=== PATIENT | male | born 1955 | race Caucasian/White ===

== ENCOUNTER → 2018-12-01 | Outpatient (CLI) | payer MEDICARE ==
[~2018-12-01] MED LIST: REGADENOSON 0.4 MG/5 ML SYR IV ONE
--- NOTE | 2018-12-07 17:02 | Myoview Stress Test ---
DATE OF STUDY: 12/01/2018 09:23:00 Stress Test - Treadmill ONLY PROCEDURE TITLE: Rest/stress single isotope SPECT imaging with pharmacologic stress and gated SPECT imaging. INDICATION: Chest pain. PROCEDURE IN DETAIL: Pharmacologic stress testing was performed with regadenoson per protocol. The heart rate was 66 beats per minute at rest and increased to 105 beats per minute during the regadenoson infusion. The rest blood pressure was 114/73 mmHg, increased to 143/66 mmHg, which is a normal response. The resting electrocardiogram demonstrated normal sinus rhythm. There were no ST-segment changes suggestive of myocardial ischemia. Myocardial perfusion imaging was performed at rest following the injection of 10.7 mCi of tetrofosmin. At peak pharmacologic effect, the patient was injected with 32 mCi of tetrofosmin. Gated post-stress tomographic imaging was performed. FINDINGS: The overall quality of study is fair. Left ventricular cavity is noted to be normal size on the rest and stress studies. SPECT images demonstrate homogeneous tracer distribution throughout the myocardium. Gated SPECT imaging reveals normal myocardial thickening and wall motion. Left ventricular ejection fraction was calculated to be greater than 70%. IMPRESSION: Myocardial perfusion imaging is normal. Overall, left ventricular systolic function was normal without regional wall motion abnormalities. Marcia Tafoya MD ABS/MODL /[id number]
== END ==
LOC: NM 09:13
PROVIDERS: ATTEND Internal Medicine Cardiovascular Disease
DX: R07.9 Chest pain, unspecified (principal); I50.9 Heart failure, unspecified
CPT/HCPCS: 78452; 93017; A9502; J2785

== ENCOUNTER 2021-01-01 14:08 | Inpatient (IN) | payer MEDICARE ==
[~2021-01-01] VITALS: Ht 167.6 cm; Wt 52.6 kg
[2021-01-01] MEDS ORDERED: ONDANSETRON HCL INJ 2MG/ML 2ML 2 MG/ML VIAL IV STA (14:25)
[2021-01-01] MEDS ORDERED: METHYLPREDNISOLONE SOD SUCC 125 MG/2ML VIAL IV STA (14:29)
[2021-01-01] MEDS ORDERED: ALBUTEROL/IPRATROPIUM 3 ML NEB NEB ONE (14:30)
[2021-01-01] MEDS ORDERED: SODIUM CHLORIDE 0.9% 500ML 500 ML IV ONE (14:30)
[2021-01-01 14:55] LABS: BASOPHILS % 0.3 % (0.0-1.0); HEMATOCRIT 31.1 % (38.2-49.6); HEMOGLOBIN 9.9 g/dL (14.0-18.0); LYMPHOCYTES # (AUTO) 0.5 (1.0-3.2); LYMPHOCYTES % 15.6 % (18.0-39.1); MEAN CORPUSCULAR HGB CONC 31.8 g/dL (31-35); MEAN CORPUSCULAR VOLUME 100.6 fL (81-99); MONOCYTES # (AUTO) 0.5 (0.2-0.8); MONOCYTES % 14.1 % (4.4-11.3); NEUTROPHILS # (AUTO) 2.2 (2.1-6.9); NEUTROPHILS % 69.7 % (38.7-80.0); RED BLOOD COUNT 3.09 x10e6/uL (4.3-5.7); RED CELL DISTRIBUTION WIDTH 11.9 % (11.7-14.4)
[2021-01-01 14:58] LABS: PLATELET COUNT 91 x10e3/uL (140-360)
[2021-01-01 15:01] LABS: INR 0.89; PROTHROMBIN TIME 12.2 seconds (11.9-14.5)
[2021-01-01 15:02] LABS: PARTIAL THROMBOPLASTIN TIME 33.9 seconds (23.8-35.5)
[2021-01-01 15:12] LABS: ALBUMIN 3.4 g/dL (3.5-5.0); ALBUMIN/GLOBULIN RATIO 1.1 (0.8-2.0); ANION GAP 12.8 mmol/L (8-16); CALCIUM 8.5 mg/dL (8.4-10.2); CREATININE, SERUM 0.86 mg/dL (0.72-1.25); MAGNESIUM 1.7 MG/DL (1.3-2.1); POTASSIUM 3.8 mmol/L (3.5-5.1)
[2021-01-01 15:17] LABS: CREATINE KINASE MB 1.1 ng/mL (0-5.0)
[2021-01-01] MEDS ORDERED: ONDANSETRON HCL INJ 2MG/ML 2ML 2 MG/ML VIAL IV PRN (15:30)
[2021-01-01] MEDS ORDERED: MORPHINE SULFATE INJ 2 MG/ML SYR IV PRN (15:30)
[2021-01-01] MEDS ORDERED: CEFTRIAXONE 1 GM in SODIUM CHLORIDE 0.9% 50ML 50 ML IV SCH (16:00)
[2021-01-01 16:05] LABS: ABG HCO3 47 mmol/L (22-26); ABG PCO2 96 mmHg (35-45); ABG PO2 304 mmHg (80-105); ABG TCO2 50
[2021-01-01] MEDS ORDERED: ALBUTEROL SULFATE HFA 8GM INHALATION AEROSOL INH PRN (16:30)
[2021-01-01] MEDS ORDERED: REMDESIVIR 200MG 200 MG in SODIUM CHLORIDE 0.9% 100 ML IV ONE (17:30)
[2021-01-01] MEDS: ASCORBIC ACID 500 MG TAB PO SCH (17:42)
[2021-01-01] MEDS: ENOXAPARIN 30 MG/0.3 ML SYR SC SCH (17:42)
[2021-01-01] MEDS ORDERED: DEXAMETHASONE SOD PHOS 10 MG/1 ML VIAL IV SCH (18:00)
[2021-01-01] MEDS ORDERED: SODIUM CHLORIDE 0.9% 50ML 50 ML ONE (19:18)
[2021-01-01] MEDS ORDERED: IOPAMIDOL 370 MG/ML 200 ML INFUS..BTL INJ ONE (19:18)
[2021-01-01] MEDS ORDERED: PROMETHAZINE 25MG/ NS 50ML (IV) IV PRN (19:30)
[2021-01-01] MEDS ORDERED: REMDESIVIR 200MG 200 MG IV SCH (19:45)
[2021-01-01] MEDS: ACETAMINOPHEN 325 MG TAB PO PRN (19:45)
[2021-01-01] MEDS ORDERED: ACETAMINOPHEN 325 MG TAB ONE (19:47)
[2021-01-01] MEDS ORDERED: PROMETHAZINE 12.5MG/ NACL 0.9% 50 ML ONE (19:47)
[2021-01-01] MEDS ORDERED: SODIUM CHLORIDE 0.9% 250ML 0 ML ONE (19:51)
[2021-01-01] MEDS ORDERED: ASCORBIC ACID 500 MG TAB PO SCH (20:00)
[2021-01-01 23:32] LABS: CREATINE KINASE MB 1.2 ng/mL (0-5.0)
[2021-01-02] VITALS (8 sets, daily range): BP systolic 123–154; BP diastolic 71–81
[2021-01-02 05:51] LABS: HEMATOCRIT 32.9 % (38.2-49.6); HEMOGLOBIN 10.4 g/dL (14.0-18.0); LYMPHOCYTES # (AUTO) 0.4 (1.0-3.2); MEAN CORPUSCULAR HEMOGLOBIN 31.8 pg (28-32); MEAN CORPUSCULAR HGB CONC 31.6 g/dL (31-35); MEAN CORPUSCULAR VOLUME 100.6 fL (81-99); MONOCYTES # (AUTO) 0.1 (0.2-0.8); MONOCYTES % 7.5 % (4.4-11.3); NEUTROPHILS # (AUTO) 1.1 (2.1-6.9); NEUTROPHILS % 68.9 % (38.7-80.0); PLATELET COUNT 91 x10e3/uL (140-360); RED BLOOD COUNT 3.27 x10e6/uL (4.3-5.7)
[2021-01-02 06:50] LABS: CREATINE KINASE MB 1.3 ng/mL (0-5.0)
[2021-01-02 08:43] LABS: ALBUMIN 3.2 g/dL (3.5-5.0); ANION GAP 13.6 mmol/L (8-16); CALCIUM 9.1 mg/dL (8.4-10.2); CREATININE, SERUM 0.8 mg/dL (0.72-1.25)
[2021-01-02] MEDS ORDERED: ENOXAPARIN INJ 80 MG/0.8 ML SYR SC SCH (09:00)
[2021-01-02] MEDS ORDERED: ZINC SULFATE 220 MG CAP PO SCH (09:00)
[2021-01-02] MEDS ORDERED: CEFTRIAXONE 2 GM in SODIUM CHLORIDE 0.9% 100 ML IV SCH (09:00)
[2021-01-02 09:31] LABS: BAND NEUTROPHILS % (MANUAL) 7 %; LYMPHOCYTES % (MANUAL) 16 % (19-48); MONOCYTES % (MANUAL) 10 % (3.4-9.0); NEUTROPHILS % (MANUAL) 67 % (40-74); NUCLEATED RED BLOOD CELLS 1
[2021-01-02 09:32] LABS: PLATELET ESTIMATE SLIGHTLY DECREASED; PLATELET MORPHOLOGY COMMENT FEW LARGE
[2021-01-02 09:33] LABS: RBC MORPHOLOGY COMMENT NORMAL
[2021-01-02] MEDS: ENOXAPARIN 30 MG/0.3 ML SYR SC SCH ×2 (09:34→16:56)
[2021-01-02] MEDS: ASCORBIC ACID 500 MG TAB PO SCH ×2 (09:34→16:56)
[2021-01-02] MEDS: ZINC SULFATE 50 MG CAP PO SCH (09:34)
[2021-01-02 09:44] LABS: POTASSIUM 4.6 mmol/L (3.5-5.1)
[2021-01-02] MEDS ORDERED: FLOMAX0.4 MG PO (12:24)
[2021-01-02] MEDS ORDERED: LASIX10 MG/ML PO (12:24)
[2021-01-02] MEDS ORDERED: PANTOPRAZOLE SO40 MG PO (12:24)
[2021-01-02] MEDS ORDERED: LISINOPRIL10 MG PO (12:24)
[2021-01-02] MEDS ORDERED: CARVEDILOL12.5 MG PO (12:24)
[2021-01-02] MEDS ORDERED: AMLODIPINE BESY10 MG PO (12:24)
[2021-01-02] MEDS ORDERED: ALBUTEROL0.63 MG/3 NEB (12:24)
[2021-01-02] MEDS ORDERED: NEXIUM40 MG PO (12:24)
[2021-01-02] MEDS ORDERED: LINZESS72 MCG PO (12:24)
[2021-01-02] MEDS: LORATADINE 10 MG TAB PO SCH (12:34)
[2021-01-02] MEDS: REMDESIVIR 100MG 100 MG in SODIUM CHLORIDE 0.9% 100 ML IV SCH (13:55)
[2021-01-02] MEDS: BENZONATATE 100 MG CAP PO SCH ×2 (13:55→20:05)
[2021-01-02] MEDS: CEFTRIAXONE 1 GM in SODIUM CHLORIDE 0.9% 50ML 50 ML IV SCH (15:58)
[2021-01-02] MEDS: ACETAMINOPHEN 325 MG TAB PO PRN (15:58)
[2021-01-02] MEDS: DEXAMETHASONE SOD PHOS 10 MG/1 ML VIAL IV SCH (16:56)
[2021-01-02] MEDS ORDERED: REMDESIVIR 100MG 100 MG IV SCH (19:45)
[2021-01-02] MEDS: ZOLPIDEM TARTRATE 5 MG TAB PO PRN (20:30)
[2021-01-03] VITALS (7 sets, daily range): BP systolic 135–146; BP diastolic 73–93
[2021-01-03 05:01] LABS: HEMATOCRIT 28.2 % (38.2-49.6); HEMOGLOBIN 9.8 g/dL (14.0-18.0); LYMPHOCYTES # (AUTO) 0.4 (1.0-3.2); LYMPHOCYTES % 13.9 % (18.0-39.1); MEAN CORPUSCULAR HEMOGLOBIN 34.5 pg (28-32); MEAN CORPUSCULAR HGB CONC 34.8 g/dL (31-35); MEAN CORPUSCULAR VOLUME 99.3 fL (81-99); MONOCYTES # (AUTO) 0.4 (0.2-0.8); MONOCYTES % 13.5 % (4.4-11.3); NEUTROPHILS # (AUTO) 2.1 (2.1-6.9); NEUTROPHILS % 71.9 % (38.7-80.0); PLATELET COUNT 105 x10e3/uL (140-360); RED BLOOD COUNT 2.84 x10e6/uL (4.3-5.7); RED CELL DISTRIBUTION WIDTH 12.5 % (11.7-14.4)
[2021-01-03 05:19] LABS: ALBUMIN 2.9 g/dL (3.5-5.0); CALCIUM 8.7 mg/dL (8.4-10.2); CREATININE, SERUM 0.79 mg/dL (0.72-1.25)
[2021-01-03] MEDS: ENOXAPARIN 30 MG/0.3 ML SYR SC SCH ×2 (08:34→17:19)
[2021-01-03] MEDS: LORATADINE 10 MG TAB PO SCH (08:34)
[2021-01-03] MEDS: ZINC SULFATE 50 MG CAP PO SCH (08:34)
[2021-01-03] MEDS: BENZONATATE 100 MG CAP PO SCH ×3 (08:34→20:38)
[2021-01-03] MEDS: ASCORBIC ACID 500 MG TAB PO SCH ×2 (08:34→17:19)
[2021-01-03] MEDS ORDERED: DEXAMETHASONE SOD PHOS 10 MG/1 ML VIAL IV SCH (09:00)
[2021-01-03 09:18] LABS: BAND NEUTROPHILS % (MANUAL) 5 %; LYMPHOCYTES % (MANUAL) 11 % (19-48); MONOCYTES % (MANUAL) 14 % (3.4-9.0); NEUTROPHILS % (MANUAL) 70 % (40-74)
[2021-01-03 09:19] LABS: PLATELET ESTIMATE SLIGHTLY DECREASED
[2021-01-03 09:20] LABS: PLATELET MORPHOLOGY COMMENT FEW LARGE; RBC MORPHOLOGY COMMENT NORMAL
[2021-01-03] MEDS: REMDESIVIR 100MG 100 MG in SODIUM CHLORIDE 0.9% 100 ML IV SCH (14:15)
[2021-01-03] MEDS: CEFTRIAXONE 1 GM in SODIUM CHLORIDE 0.9% 50ML 50 ML IV SCH (15:11)
[2021-01-03] MEDS: DEXAMETHASONE SOD PHOS 10 MG/1 ML VIAL IV SCH (17:19)
[2021-01-03] MEDS: ZOLPIDEM TARTRATE 5 MG TAB PO PRN (22:59)
[2021-01-04] VITALS (7 sets, daily range): BP systolic 132–153; BP diastolic 76–96
[2021-01-04 06:25] LABS: HEMATOCRIT 30.4 % (38.2-49.6); HEMOGLOBIN 10.1 g/dL (14.0-18.0); LYMPHOCYTES # (AUTO) 0.3 (1.0-3.2); LYMPHOCYTES % 11.9 % (18.0-39.1); MEAN CORPUSCULAR HEMOGLOBIN 32.7 pg (28-32); MEAN CORPUSCULAR HGB CONC 33.2 g/dL (31-35); MEAN CORPUSCULAR VOLUME 98.4 fL (81-99); MONOCYTES # (AUTO) 0.2 (0.2-0.8); MONOCYTES % 8.4 % (4.4-11.3); NEUTROPHILS # (AUTO) 1.8 (2.1-6.9); NEUTROPHILS % 79.3 % (38.7-80.0); PLATELET COUNT 116 x10e3/uL (140-360); RED BLOOD COUNT 3.09 x10e6/uL (4.3-5.7); RED CELL DISTRIBUTION WIDTH 12.5 % (11.7-14.4)
[2021-01-04 06:50] LABS: ALBUMIN 2.9 g/dL (3.5-5.0); ANION GAP 13.9 mmol/L (8-16); CALCIUM 8.7 mg/dL (8.4-10.2); CREATININE, SERUM 0.71 mg/dL (0.72-1.25); POTASSIUM 3.9 mmol/L (3.5-5.1)
[2021-01-04] MEDS: ASCORBIC ACID 500 MG TAB PO SCH ×2 (08:36→16:37)
[2021-01-04] MEDS: LORATADINE 10 MG TAB PO SCH (08:36)
[2021-01-04] MEDS: BENZONATATE 100 MG CAP PO SCH ×3 (08:36→20:40)
[2021-01-04] MEDS: ENOXAPARIN 30 MG/0.3 ML SYR SC SCH ×2 (08:36→16:37)
[2021-01-04] MEDS: ZINC SULFATE 50 MG CAP PO SCH (08:36)
[2021-01-04] MEDS: ACETAMINOPHEN 325 MG TAB PO PRN (10:28)
[2021-01-04 15:29] LABS: FERRITIN 329.45 ng/mL (21.81-274.66)
[2021-01-04] MEDS: REMDESIVIR 100MG 100 MG in SODIUM CHLORIDE 0.9% 100 ML IV SCH (16:35)
[2021-01-04] MEDS: DEXAMETHASONE SOD PHOS 10 MG/1 ML VIAL IV SCH (16:37)
[2021-01-04] MEDS: CEFTRIAXONE 1 GM in SODIUM CHLORIDE 0.9% 50ML 50 ML IV SCH (16:37)
[2021-01-04] MEDS: ZOLPIDEM TARTRATE 5 MG TAB PO PRN (20:40)
[2021-01-04] MEDS: MEGACE 400MG/ 10ML CUP PO SCH (20:41)
[2021-01-04] MEDS ORDERED: MEGESTROL ACETATE 40 MG TAB PO SCH (21:00)
[2021-01-05] VITALS (7 sets, daily range): BP systolic 135–149; BP diastolic 66–93
[2021-01-05 08:22] LABS: HEMATOCRIT 34.1 % (38.2-49.6); LYMPHOCYTES # (AUTO) 0.7 (1.0-3.2); LYMPHOCYTES % 18.2 % (18.0-39.1); MEAN CORPUSCULAR HEMOGLOBIN 31.7 pg (28-32); MEAN CORPUSCULAR HGB CONC 32.3 g/dL (31-35); MEAN CORPUSCULAR VOLUME 98.3 fL (81-99); MONOCYTES # (AUTO) 0.7 (0.2-0.8); MONOCYTES % 17.4 % (4.4-11.3); NEUTROPHILS # (AUTO) 2.4 (2.1-6.9); NEUTROPHILS % 64.1 % (38.7-80.0); PLATELET COUNT 134 x10e3/uL (140-360); RED BLOOD COUNT 3.47 x10e6/uL (4.3-5.7); RED CELL DISTRIBUTION WIDTH 12.3 % (11.7-14.4)
[2021-01-05] MEDS: BENZONATATE 100 MG CAP PO SCH ×3 (08:47→21:08)
[2021-01-05] MEDS: ZINC SULFATE 50 MG CAP PO SCH (08:47)
[2021-01-05] MEDS: LORATADINE 10 MG TAB PO SCH (08:47)
[2021-01-05] MEDS: MEGACE 400MG/ 10ML CUP PO SCH (08:47)
[2021-01-05] MEDS: ENOXAPARIN 30 MG/0.3 ML SYR SC SCH ×2 (08:47→16:30)
[2021-01-05] MEDS: ASCORBIC ACID 500 MG TAB PO SCH ×2 (08:47→16:30)
[2021-01-05 09:47] LABS: ALBUMIN 3.1 g/dL (3.5-5.0); ALBUMIN/GLOBULIN RATIO 1.1 (0.8-2.0); CALCIUM 8.6 mg/dL (8.4-10.2); CREATININE, SERUM 0.72 mg/dL (0.72-1.25)
[2021-01-05] MEDS: REMDESIVIR 100MG 100 MG in SODIUM CHLORIDE 0.9% 100 ML IV SCH (13:44)
[2021-01-05] MEDS: CEFTRIAXONE 1 GM in SODIUM CHLORIDE 0.9% 50ML 50 ML IV SCH (16:30)
[2021-01-05] MEDS: DEXAMETHASONE SOD PHOS 10 MG/1 ML VIAL IV SCH (16:30)
[2021-01-06] VITALS (7 sets, daily range): BP systolic 132–182; BP diastolic 81–106
[2021-01-06] MEDS: ASCORBIC ACID 500 MG TAB PO SCH ×2 (08:43→16:55)
[2021-01-06] MEDS: ZINC SULFATE 50 MG CAP PO SCH (08:43)
[2021-01-06] MEDS: LORATADINE 10 MG TAB PO SCH (08:43)
[2021-01-06] MEDS: MEGACE 400MG/ 10ML CUP PO SCH (08:43)
[2021-01-06] MEDS: BENZONATATE 100 MG CAP PO SCH ×3 (08:43→20:27)
[2021-01-06] MEDS: ENOXAPARIN 30 MG/0.3 ML SYR SC SCH ×2 (08:43→16:55)
[2021-01-06 11:05] LABS: HEMATOCRIT 36.2 % (38.2-49.6); HEMOGLOBIN 11.9 g/dL (14.0-18.0); LYMPHOCYTES # (AUTO) 0.4 (1.0-3.2); LYMPHOCYTES % 10.9 % (18.0-39.1); MEAN CORPUSCULAR HEMOGLOBIN 31.3 pg (28-32); MEAN CORPUSCULAR HGB CONC 32.9 g/dL (31-35); MEAN CORPUSCULAR VOLUME 95.3 fL (81-99); MONOCYTES # (AUTO) 0.4 (0.2-0.8); MONOCYTES % 11.4 % (4.4-11.3); NEUTROPHILS # (AUTO) 2.7 (2.1-6.9); NEUTROPHILS % 77.1 % (38.7-80.0); PLATELET COUNT 166 x10e3/uL (140-360); RED CELL DISTRIBUTION WIDTH 12.3 % (11.7-14.4)
[2021-01-06 11:35] LABS: ALBUMIN 3.5 g/dL (3.5-5.0); ALBUMIN/GLOBULIN RATIO 1.2 (0.8-2.0); CALCIUM 9.3 mg/dL (8.4-10.2); CREATININE, SERUM 0.79 mg/dL (0.72-1.25)
[2021-01-06] MEDS ORDERED: ONDANSETRON HCL INJ 2MG/ML 2ML 2 MG/ML VIAL IV PRN (15:30)
[2021-01-06] MEDS: DEXAMETHASONE SOD PHOS 10 MG/1 ML VIAL IV SCH (16:55)
[2021-01-06] MEDS ORDERED: METOPROLOL TARTRATE 25 MG TAB PO SCH (18:15)
[2021-01-06] MEDS: ZOLPIDEM TARTRATE 5 MG TAB PO PRN (21:00)
[2021-01-07 00:55] VITALS: BP 153/86
[2021-01-07] MEDS: METOPROLOL TARTRATE 25 MG TAB PO SCH ×3 (01:40→17:06)
[2021-01-07 04:00] VITALS: BP 142/91
[2021-01-07 07:37] LABS: HEMATOCRIT 30.8 % (38.2-49.6); LYMPHOCYTES # (AUTO) 0.4 (1.0-3.2); LYMPHOCYTES % 8.4 % (18.0-39.1); MEAN CORPUSCULAR HGB CONC 35.7 g/dL (31-35); MEAN CORPUSCULAR VOLUME 92.5 fL (81-99); MONOCYTES # (AUTO) 0.4 (0.2-0.8); MONOCYTES % 8.4 % (4.4-11.3); NEUTROPHILS # (AUTO) 3.5 (2.1-6.9); NEUTROPHILS % 82.5 % (38.7-80.0); PLATELET COUNT 153 x10e3/uL (140-360); RED BLOOD COUNT 3.33 x10e6/uL (4.3-5.7); RED CELL DISTRIBUTION WIDTH 12.4 % (11.7-14.4)
[2021-01-07] MEDS: ASCORBIC ACID 500 MG TAB PO SCH ×2 (08:33→16:25)
[2021-01-07] MEDS: ZINC SULFATE 50 MG CAP PO SCH (08:33)
[2021-01-07] MEDS: BENZONATATE 100 MG CAP PO SCH ×3 (08:33→20:15)
[2021-01-07] MEDS: ENOXAPARIN 30 MG/0.3 ML SYR SC SCH ×2 (08:33→16:25)
[2021-01-07] MEDS: LORATADINE 10 MG TAB PO SCH (08:33)
[2021-01-07] MEDS: MEGACE 400MG/ 10ML CUP PO SCH (08:33)
[2021-01-07] MEDS ORDERED: DEXAMETHASONE SOD PHOS 10 MG/1 ML VIAL IV SCH (09:00)
[2021-01-07 09:08] VITALS: BP 156/83
[2021-01-07 10:03] LABS: ALBUMIN 3.1 g/dL (3.5-5.0); ALBUMIN/GLOBULIN RATIO 1.2 (0.8-2.0); ANION GAP 13.3 mmol/L (8-16); CALCIUM 8.5 mg/dL (8.4-10.2); CREATININE, SERUM 0.77 mg/dL (0.72-1.25); POTASSIUM 4.3 mmol/L (3.5-5.1)
[2021-01-07] MEDS: DEXAMETHASONE SOD PHOS 10 MG/1 ML VIAL IV SCH (16:25)
[2021-01-07 20:52] VITALS: BP 154/88
[2021-01-07 21:00] VITALS: BP 154/88
[2021-01-07] MEDS: ZOLPIDEM TARTRATE 5 MG TAB PO PRN (21:15)
[2021-01-08 01:10] VITALS: BP 142/89
[2021-01-08] MEDS: METOPROLOL TARTRATE 25 MG TAB PO SCH ×2 (02:10→09:00)
[2021-01-08 05:20] VITALS: BP 131/82
[2021-01-08 08:39] LABS: HEMOGLOBIN 10.8 g/dL (14.0-18.0); LYMPHOCYTES # (AUTO) 0.4 (1.0-3.2); MEAN CORPUSCULAR HEMOGLOBIN 31.4 pg (28-32); MEAN CORPUSCULAR HGB CONC 33.8 g/dL (31-35); MONOCYTES # (AUTO) 0.7 (0.2-0.8); MONOCYTES % 12.5 % (4.4-11.3); NEUTROPHILS # (AUTO) 4.2 (2.1-6.9); NEUTROPHILS % 78.7 % (38.7-80.0); PLATELET COUNT 167 x10e3/uL (140-360); RED BLOOD COUNT 3.44 x10e6/uL (4.3-5.7); RED CELL DISTRIBUTION WIDTH 12.4 % (11.7-14.4)
[2021-01-08 09:00] VITALS: BP 161/83
[2021-01-08] MEDS: LORATADINE 10 MG TAB PO SCH (09:00)
[2021-01-08] MEDS: MEGACE 400MG/ 10ML CUP PO SCH (09:00)
[2021-01-08] MEDS: ZINC SULFATE 50 MG CAP PO SCH (09:00)
[2021-01-08] MEDS: ASCORBIC ACID 500 MG TAB PO SCH (09:00)
[2021-01-08] MEDS: BENZONATATE 100 MG CAP PO SCH (09:00)
[2021-01-08] MEDS: ENOXAPARIN 30 MG/0.3 ML SYR SC SCH (09:00)
[2021-01-08 09:14] LABS: ALBUMIN/GLOBULIN RATIO 1.3 (0.8-2.0); ANION GAP 12.1 mmol/L (8-16); CALCIUM 8.3 mg/dL (8.4-10.2); CREATININE, SERUM 0.8 mg/dL (0.72-1.25); POTASSIUM 4.1 mmol/L (3.5-5.1)
[2021-01-08 09:33] VITALS: BP 161/83
[2021-01-08] MEDS ORDERED: PREDNISONE20 MG PO (11:07)
[2021-01-08] MEDS ORDERED: ASCORBIC ACID500 MG PO (11:07)
[2021-01-08] MEDS ORDERED: TESSALON PERLE100 MG PO (11:07)
[2021-01-08 12:50] VITALS: BP 144/81
[2021-01-08] MEDS ORDERED: ONDANSETRON HCL 4 MG ORAL DISINTEGRATING TAB PO PRN (13:45)
[2021-01-09] MEDS ORDERED: PANTOPRAZOLE SOD 40 MG TABEC PO SCH (07:30)
== END 2021-01-08 14:20 | disposition home or self-care (01) | DRG 177 ==
LOC: ER 14:23 → ERHOLD 15:24 → UNDOADMOB 15:40 → ERHOLD 15:40 → OBSVTOIN 16:31 → IMCU 01-02 06:23
PROVIDERS: ADMIT Internal Medicine; ATTEND Internal Medicine
PROC: 3E0333Z Introduction of Anti-inflammatory into Peripheral Vein, Percutaneous Approach (ICD-10-PCS; principal; 2021-01-01)
PROC: XW033E5 Introduction of Remdesivir Anti-infective into Peripheral Vein, Percutaneous Approach, New Technology Group 5 (ICD-10-PCS; 2021-01-01)
DX: U07.1 COVID-19 (principal); J12.82 Pneumonia due to coronavirus disease 2019; J96.22 Acute and chronic respiratory failure with hypercapnia; J96.21 Acute and chronic respiratory failure with hypoxia; J44.1 Chronic obstructive pulmonary disease with (acute) exacerbation; Z68.1 Body mass index [BMI] 19.9 or less, adult; B17.10 Acute hepatitis C without hepatic coma; I11.0 Hypertensive heart disease with heart failure; I50.9 Heart failure, unspecified; Z87.891 Personal history of nicotine dependence; D69.6 Thrombocytopenia, unspecified; D64.9 Anemia, unspecified; D72.819 Decreased white blood cell count, unspecified; Z99.81 Dependence on supplemental oxygen; R53.81 Other malaise; K76.0 Fatty (change of) liver, not elsewhere classified; K21.9 Gastro-esophageal reflux disease without esophagitis
CPT/HCPCS: 36415; 36600; 71045; 71260; 76700; 80053; 82550; 82553; 82607; 82728; 82746; 82805; 82948; 83540; 83615; 83735; 83880; 84466; 84484; 85025; 85045; 85610; 85730; 87040; 93005; 94640; 99285; J0456; J0696; J1100; J1650; J2405; J2550; J2930; J7040; J7050; Q9967; U0002